=== PATIENT | female | born 1995 | race Caucasian/White ===

== ENCOUNTER 2020-10-23 07:45 | Outpatient (CLI) | payer OTHER, MEDICAID, SELFPAY ==
--- NOTE | ~2020-10-23 | US_ITS ---
EXAMINATION: US OB <= 14 weeks fetus DATE: 10/23/2020 08:22 INDICATION: Routine care and dating of during first trimester TECHNIQUE: Real-time pelvic ultrasound utilizing both a transvaginal and transabdominal probe was pe rformed. The interpreting radiologist was not present for the study. COMPARISON: None. FINDINGS: The uterus measures 12.5 x 8.2 x 5.7 cm. There is an intrauterine gestational sac. A yolk sac and fe sal pole are identified. The crown rump length measures 2.4 cm, which correlates with an estimated ge stational age of 9 weeks and 0 days. heart motion is identified measuring 183 beats per minute (bpm) by M-mode Doppler. The ovaries are not visualized. There is no free fluid in the pelvis. IMPRESSION: 1. Single living fetus with heart of 183 bpm. 2. Gestational age by ultrasound of 9 weeks 0 day(s) +/- 6 day(s) with ultrasound estimated date of delivery (JASON) of 05/28/2021. Reviewed, dictated and finalized at location A. IMPRESSION: 1. Single living fetus with heart of 183 bpm. 2. Gestational age by ultrasound of 9 weeks 0 day(s) +/- 6 day(s) with ultraso und estimated date of delivery (JASON) of 05/28/2021.
== END 2020-10-23 07:46 | disposition home or self-care (01) ==
LOC: ANHIMG 07:53
PROVIDERS: Visit Provider Obstetrics & Gynecology
DX: Z34.91 Encounter for supervision of normal pregnancy, unspecified, first trimester (principal); Z3A.09 9 weeks gestation of pregnancy
CPT/HCPCS: 76801

== ENCOUNTER 2020-11-23 09:39 | Outpatient (CLI) | payer MEDICAID, SELFPAY ==
--- NOTE | ~2020-11-23 | US_ITS ---
EXAMINATION: US OB <= 14 weeks fetus EXAM DATE: 11/23/2020 10:11 INDICATION: Encounter for supervision of normal . Routine care. Early 2nd trimest er. TECHNIQUE: Pelvic obstetrical transabdominal sonogram was performed by a technologist. There are mu ltiple grayscale and Doppler images available for interpretation. Comparison is made to prior examina tion from 10/23/2020. FINDINGS: Uterus measures 14.7 x 9.6 x 8.4 cm. There is intrauterine gestation sac. pole with heart rate confirmed at 154 beats per minute. The 7.1 cm crown-rump length corresponds to estimated gestational age by ultrasound of 13 weeks 2 days, estimated date of confinement 05/29/2021. There is an anteriorly located placenta. No evidence of retroplacental hemorrhage. The ovaries not identified. IMPRESSION: Expected interval growth of live intrauterine gestation. Reviewed, dictated and finalized at location .
== END 2020-11-23 09:40 | disposition home or self-care (01) ==
LOC: ANHIMG 09:44
PROVIDERS: Visit Provider Obstetrics & Gynecology
DX: Z34.91 Encounter for supervision of normal pregnancy, unspecified, first trimester (principal); Z3A.13 13 weeks gestation of pregnancy
CPT/HCPCS: 76801

== ENCOUNTER 2021-01-30 12:59 | Outpatient (CLI) | payer BC, SELFPAY ==
--- NOTE | ~2021-01-30 | US_ITS ---
EXAMINATION: US OB follow up DATE: 01/30/2021 13:48 INDICATION: Routine care during second trimester TECHNIQUE: Real-time ultrasound of the pelvis was performed. The interpreting radiologist was not pre sent for the study. COMPARISON: None. FINDINGS: There is a single living fetus in breech presentation. The placenta is fundal. cardia c activity and movement are noted. heart rate is 159 beats per minute (bpm). The amniotic fluid index is subjectively normal. The following biometric data were obtained: Biparietal diameter (BPD): 5.6 cm; head circumference (HC): 21.0 cm; abdominal circumference (AC): 18 .3 cm; femur length (FL): 4.0 cm. These measurements are concordant. Estimated weight is 565 g +/- 84 g, which correlates with the 42nd percentile when 05/28/2021 is used as estimated date of delivery. As single measurements, these parameters are each equal to the following estimated gestational ages w ith ranges of +/- 2 standard deviations: BPD: 23 weeks 2 days +/- 1 weeks 5 days. HC: 23 weeks 1 days +/- 1 weeks 3 days. AC: 23 weeks 1 days +/- 2 weeks 0 days. FL: 23 weeks 1 days +/- 1 weeks 6 days. estimated gestational age based solely on measurements from this exam is 23 weeks 1 days +/- 1 weeks 4 days. IMPRESSION: 1. Single living fetus in breech presentation. 2. Estimated weight is 565 g +/- 84 g, which correlates with the 42nd percentile when 05/28/2021 is used as estimated date of delivery. Breech Reviewed, dictated and finalized at location B. IMPRESSION: 1. Single living fetus in breech presentation. 2. Estimated weight is 565 g +/- 84 g, which correlates with the 42nd per centile when 05/28/2021 is used as estimated date of delivery. Breech
== END 2021-01-30 13:00 | disposition home or self-care (01) ==
PROVIDERS: Visit Provider Obstetrics & Gynecology
DX: Z34.92 Encounter for supervision of normal pregnancy, unspecified, second trimester (principal); Z3A.23 23 weeks gestation of pregnancy
CPT/HCPCS: 76816

== ENCOUNTER 2021-02-07 20:32 | Emergency (ER) | payer BC, SELFPAY ==
[2021-02-07 20:36] VITALS: BP 141/72; PULSE 104; RESP 18; TEMP 36.3; O2SAT 98
[2021-02-07 23:12] VITALS: BP 144/94; PULSE 98; RESP 16; TEMP 36.7; O2SAT 100
[2021-02-07 23:14] VITALS: BP 144/94; PULSE 96; RESP 16; TEMP 36.7; O2SAT 99
[2021-02-07 23:46] LABS: Add Urine Microscopic? YES; Appearance Urine Clear (Clear); Bacteria Urine Trace /hpf; Bilirubin Urine Negative (Negative); Calcium Oxalate Crystals Urine Present /hpf; Color Urine Yellow (Yellow); Glucose Urine UA Negative (Negative); Ketones Urine Negative (Negative); Leukocyte Esterase Ur 2+ LEU/UL (Negative); Mucus Urine Heavy /lpf; Nitrate Urine Negative (Negative); Protein Urine 1+ mg/dL (Negative); Squamous Epithelial Cell Urine Many /hpf (Few); Urobilinogen Urine Negative mg/dL (<2.0); WBC Urine >75 /hpf
[2021-02-07 23:59] LABS: Blood Urine Negative (Negative); Specific Grav Ur 1.032 (1.001-1.035)
--- NOTE | 2021-02-08 00:13 | ED.GENADULT ---
HPI - General Adult General Chief complaint: Headache Stated complaint: headache - 24 weeks Time Seen by Provider: 02/07/21 23:08 History of Present Illness HPI narrative: Patient is a 25-year-old female that presents the emergency department with chief complaint of headache. Patient reports she was exposed to COVID-19 reports that she has previously had Covid but has not been vaccinated reports that she is currently and reports that she had a slight headache today that was improved with Tylenol. Patient denies fever denies neck pain denies abdominal pain or cramping patient states her headache has resolved at this point. Patient denies focal neurological deficit Related Data Allergies Allergy/AdvReac Type Severity Reaction Status Date / Time No Known Allergies Allergy Verified 02/07/21 20:40 Review of Systems Review of Systems: A 10 system review of systems was completed on the patient and is negative except for what is stated in the HPI. Nursing and ancillary documentation was reviewed. Exam Narrative: GENERAL: Well-appearing, well-nourished, and in no acute distress. HEAD: Normocephalic, atraumatic. EYES: PERRLA and EOMI. ENT: Nares clear, no rhinorrhea or epistaxis. Mucous membranes moist. NECK: Supple. CHEST: Clear to auscultation. No respiratory distress. HEART: Regular rate and rhythm. No murmur heard. Normal peripheral pulses. ABDOMEN: Soft, nontender, nondistended, normal active bowel sounds. EXTREMITIES: Normal range of motion. No edema. SKIN: Warm, dry, no rash. NEURO: No focal deficits. Alert and oriented x3. PSYCH: Normal mood and affect. Course Vital Signs Vital signs: Vital Signs Temperature 36.3 C L 02/07/21 20:36 Pulse Rate 104 H 02/07/21 20:36 Respiratory Rate 18 02/07/21 20:36 Blood Pressure 141/72 H 02/07/21 20:36 Pulse Oximetry 98 02/07/21 20:36 Temperature 36.7 C 02/07/21 23:14 Pulse Rate 91 02/08/21 00:36 Respiratory Rate 18 02/08/21 00:36 Blood Pressure 121/83 02/08/21 00:36 Pulse Oximetry 100 02/08/21 00:36 Medical Decision Making Vital Signs Vital Signs: Vital Signs Temperature 36.3 C L 02/07/21 20:36 Pulse Rate 104 H 02/07/21 20:36 Respiratory Rate 18 02/07/21 20:36 Blood Pressure 141/72 H 02/07/21 20:36 Pulse Oximetry 98 02/07/21 20:36 Temperature 36.7 C 02/07/21 23:14 Pulse Rate 91 02/08/21 00:36 Respiratory Rate 18 02/08/21 00:36 Blood Pressure 121/83 02/08/21 00:36 Pulse Oximetry 100 02/08/21 00:36 Lab Data Labs: Lab Results 02/07/21 02/07/21 Range/Units 23:26 23:26 Urine Color Yellow (Yellow) Urine Appearance Clear (Clear) Urine pH 6.0 (5.0-9.0) Ur Specific [place] 1.032 (1.001-1.035) Urine Protein 1+ H (Negative) mg/dL Urine Glucose (UA) Negative (Negative) mg/dL Urine Ketones Negative (Negative) mg/dL Ur Blood (Man) Negative (Negative) Urine Nitrate Negative (Negative) Urine Bilirubin Negative (Negative) Urine Urobilinogen Negative (<2.0) mg/dL Leukocyte Esterase Rfl 2+ H (Negative) REBECA/UL Urine RBC 3-5 H (0-2) /hpf Urine WBC >75 H /hpf Ur Squamous Epith Cells Many H (Few) /hpf Calcium Oxalate Crystal Present (None) /hpf Urine Bacteria Trace /hpf Urine Mucus Heavy H /lpf SARS-CoV-2 RNA (RT-PCR) Pending Discharge Plan Discharge Clinical Impression: Acute viral syndrome UTI (urinary tract infection) Qualifiers: Urinary tract infection type: acute cystitis Hematuria presence: without hematuria Qualified Code(s): N30.00 - Acute cystitis without hematuria Headache Qualifiers: Headache type: unspecified Headache chronicity pattern: unspecified pattern Intractability: not intractable Qualified Code(s): R51.9 - Headache, unspecified Patient Disposition: Home, Self-Care Condition: Stable Instructions: Antibiotic Form, Acute Headache (ED), Viral Syndrome (ED), Urinary Tract
[2021-02-08 00:36] VITALS: BP 121/83; PULSE 91; RESP 18; O2SAT 100
[2021-02-08 01:31] VITALS: BP 129/82; PULSE 88; RESP 18; O2SAT 100
[2021-02-08] MEDS: NITROFURANTOIN MONOHYD MACROCR 100 MG CAP PO (01:33)
[2021-02-08 18:08] LABS: SARS-CoV-2 RNA PCR Negative
== END 2021-02-08 01:37 | disposition home or self-care (01) ==
PROVIDERS: Emergency Provider Emergency Medicine
DX: O98.512 Other viral diseases complicating pregnancy, second trimester (principal); B34.9 Viral infection, unspecified; O23.42 Unspecified infection of urinary tract in pregnancy, second trimester; R51.9 Headache, unspecified; Z3A.24 24 weeks gestation of pregnancy; Z20.822 Contact with and (suspected) exposure to COVID-19
CPT/HCPCS: 81001; 87086; 87088; 99283; A9270; C9803; U0003; U0005

== ENCOUNTER 2021-03-10 12:01 | Observation (INO) | payer OTHER, BC, SELFPAY ==
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
[2021-03-10 12:46] VITALS: BP 123/65; PULSE 103
[2021-03-10 13:01] VITALS: BP 111/65; PULSE 102
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
[2021-03-10 13:15] VITALS: BP 102/76; PULSE 96
[2021-03-10 13:37] LABS: Hematocrit 32.5 % (37.0-47.0); Hemoglobin 10.6 g/dL (12.0-15.0); Mean Corpuscular HGB Conc 32.6 g/dl (32-36); Mean Corpuscular Hemoglobin 29.4 pg (26-34); Mean Corpuscular Volume 90.3 fl (80-100); Mean Platelet Volume 9.5 fl (7.4-10.4); Platelet Count Result 229 k/mm3 (150-375); Red Cell Distribution Width 15.1 % (11.5-14.5); White Blood Count 12.4 K/mm3 (4.5-10.0)
[2021-03-10 13:51] LABS: Alanine Aminotransferase 16 U/L (4-35); Albumin Level 3.5 g/dL (3.5-5.1); Alkaline Phosphatase 92 U/L (38-126); Anion Gap 7 mmol/L (8-16); Aspartate Amino Transferase 17 U/L (14-36); Bilirubin,Total 0.2 mg/dL (0.2-1.3); Blood Urea Nitrogen 3 mg/dL (7-17); Calcium 8.8 mg/dL (8.4-10.2); Carbon Dioxide 22 mmol/L (22-30); Chloride 108 mmol/L (98-107); Estimated Glomerular Filt Rate > 60; Glucose 93 mg/dL (65-110); Potassium 3.6 mmol/L (3.4-5.0); Sodium 137 mmol/L (137-145)
--- NOTE | 2021-03-10 14:15 | PC.NURSE ---
Dr Ellison called with US results. Ok to dc home and have patient follow up tomorrow in the office.
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
== END 2021-03-10 14:32 | disposition home or self-care (01) ==
PROVIDERS: Admitting Provider Obstetrics & Gynecology; Visit Provider Obstetrics & Gynecology
DX: Z04.1 Encounter for examination and observation following transport accident (principal); O99.893 Other specified diseases and conditions complicating puerperium; V89.2XXA Person injured in unspecified motor-vehicle accident, traffic, initial encounter; Z3A.29 29 weeks gestation of pregnancy
CPT/HCPCS: 36415; 76815; 80053; 85027; G0378; G0379

== ENCOUNTER 2021-03-11 14:36 | Outpatient (CLI) | payer OTHER, BC, SELFPAY ==
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
== END 2021-03-11 14:37 | disposition home or self-care (01) ==
LOC: ANHIMG 14:39
PROVIDERS: Visit Provider Obstetrics & Gynecology
DX: Z34.90 Encounter for supervision of normal pregnancy, unspecified, unspecified trimester (principal); Z3A.00 Weeks of gestation of pregnancy not specified
CPT/HCPCS: 76816

== ENCOUNTER 2021-04-09 13:38 | Outpatient (CLI) | payer BC, SELFPAY ==
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
== END 2021-04-09 13:39 | disposition home or self-care (01) ==
LOC: ANHIMG 13:42
PROVIDERS: Visit Provider Obstetrics & Gynecology
DX: O26.90 Pregnancy related conditions, unspecified, unspecified trimester (principal); Z3A.00 Weeks of gestation of pregnancy not specified
CPT/HCPCS: 76816